=== PATIENT | female | born 1965 | race Caucasian/White ===

== ENCOUNTER → 2017-03-06 | Outpatient (CLI) | payer BC ==
--- NOTE | 2017-03-07 08:07 | MM ---
Reason for exam: screening (asymptomatic). Last mammogram was performed 5 years and 4 months ago. Physical Findings: A clinical breast exam by your physician is recommended on an annual basis and results should be correlated with mammographic findings. MG Screening Mammo w CAD Bilateral CC and MLO view(s) were taken. Prior study comparison: January 15, 2015, mammogram, performed at [facility]. October 27, 2011, bilateral digital screening mammo w/CAD. November 06, 2008, bilateral digital screening mammogram. There are scattered fibroglandular densities. No significant changes when compared with prior studies. ASSESSMENT: Negative, BI-RAD 1 RECOMMENDATION: Routine screening mammogram of both breasts in 1 year.
== END | disposition home or self-care (01) ==
LOC: RADMAMWWP 07:23
PROVIDERS: ATTEND Obstetrics & Gynecology
DX: Z12.31 Encounter for screening mammogram for malignant neoplasm of breast (principal); N95.1 Menopausal and female climacteric states

== ENCOUNTER 2017-03-17 10:43 | Day surgery (SDC) | payer BC ==
[2017-03-13 15:45] VITALS: BMI 25.1
[~2017-03-17 10:43] MED LIST: LACTATED RINGERS 1,000 ML IV SCH; LIDOCAINE 1% 20 ML VIAL (10MG/ML) FOR IV START INTRADERMA PRN
[2017-03-17 11:12] VITALS: TEMP 98.1
[2017-03-17] MEDS ORDERED: PROPOFOL 10 MG/ML 20 ML VIAL IV ONE (12:58)
[2017-03-17] MEDS ORDERED: MIDAZOLAM 2 MG/2 ML VIAL ONE (12:58)
[2017-03-17] MEDS ORDERED: fentaNYL (PF) 50 MCG/ML 2 ML AMP ONE (12:58)
[2017-03-17] MEDS ORDERED: LIDOCAINE 1% INJ 10MG/ML (20 ML MDV) ONE (12:58)
--- NOTE | 2017-03-17 13:18 | P.OP ---
Date of Procedure: 03/17/17 Preoperative Diagnosis: Screening colonoscopy Postoperative Diagnosis: Normal colon Procedure(s) Performed: Colonoscopy Implants: Anesthesia: MAC Surgeon: Gume Akins Pathology: none sent Condition: stable Disposition: PACU Indications for Procedure: Operative Findings: Description of Procedure: PROCEDURE: The patient was placed on the endoscopy table in the lateral position. Digital rectal examination was performed which revealed no abnormalities. Flexible colonoscope was then placed in the patient's anus and passed throughout the entire colon. The ileocecal valve was visualized. The cecum, ascending, transverse, descending and sigmoid colon were normal. The rectum was normal as well. There were no masses, polyps or diverticula noted in the entire colon. SUMMARY OF FINDINGS: Normal colonoscopy.
[2017-03-17 13:19] VITALS: RESP 16
--- NOTE | 2017-03-17 13:19 | P.GSHP ---
History of Present Illness H&P Date: 03/17/17 This a 52-year-old female referred from Dr. jaeger. Patient presents today for screening colonoscopy. Past Medical History Past Medical History: Blood Disorder Additional Past Medical History / Comment(s): SCREENING. FACTOR 5 BLOOD DISORDER History of Any Multi-Drug Resistant Organisms: None Reported Past Surgical History: Bariatric Surgery, Section, Cholecystectomy, Hernia Repair, Hysterectomy, Tubal Ligation Additional Past Surgical History / Comment(s): LAP BAND, PORT REPAIR THEN REMOVAL OF LAP BAND. GASTRIC SLEEVE,. KIDNEY STONES REMOVED,. HIATAL HERNIA REPAIR, Past Anesthesia/Blood Transfusion Reactions: No Reported Reaction Past Psychological History: Depression Smoking Status: Never smoker - Past Family History Mother Family Medical History: Deep Vein Thrombosis (DVT) Medications and Allergies Home Medications Medication Instructions Recorded Confirmed Type Acetaminophen Tab [Tylenol Tab] 1,000 mg PO HS 03/13/17 03/13/17 History Aspirin [Adult Low Dose Aspirin EC] 81 mg PO DAILY 03/13/17 03/13/17 History Cyanocobalamin (Vitamin B-12) 2,500 mcg PO DAILY 03/13/17 03/13/17 History [Vitamin B12] Multivitamins, Thera [Multivitamin 1 each PO DAILY 03/13/17 03/13/17 History (formulary)] buPROPion HCL [Wellbutrin XL] 300 mg PO DAILY 03/13/17 03/13/17 History Allergies Allergy/AdvReac Type Severity Reaction Status Date / Time No Known Allergies Allergy Verified 03/13/17 15:37 Surgical - Exam Vital Signs Temp Pulse Resp BP Pulse Ox 98.1 F 80 18 115/74 97 03/17/17 11:11 03/17/17 11:11 03/17/17 11:11 03/17/17 11:11 03/17/17 11:11 - General well developed, no distress - Eyes PERRL - ENT normal pinna - Neck no masses - Respiratory normal expansion - Cardiovascular Rhythm: regular - Abdomen Abdomen: soft, non tender Assessment and Plan Plan: We'll perform screening colonoscopy.
[2017-03-17 13:35] VITALS: BP 108/73; PULSE 69
== END 2017-03-17 13:56 | disposition home or self-care (01) ==
LOC: ORWHC2ENDO 10:43
PROVIDERS: ATTEND Surgery
DX: Z12.11 Encounter for screening for malignant neoplasm of colon (principal); D68.51 Activated protein C resistance; F32.9 Major depressive disorder, single episode, unspecified; Z79.82 Long term (current) use of aspirin; Z79.899 Other long term (current) drug therapy
CPT/HCPCS: J2250; J2001; J3010; J2704; G0121

== ENCOUNTER 2018-06-07 13:56 | Emergency (ER) | payer BC ==
[2018-06-07 14:05] VITALS: BP 119/77; PULSE 87; RESP 20; TEMP 98.1
[2018-06-07] MEDS ORDERED: SODIUM CHLORIDE 0.9% 500 ML IV STA (14:17)
[2018-06-07] MEDS ORDERED: SODIUM CHLORIDE 0.9% 1,000 ML IV STA (14:17)
[2018-06-07] MEDS ORDERED: KETOROLAC 30 MG/ML 1 ML VIAL IVP STA (14:17)
--- NOTE | 2018-06-07 14:20 | ED ---
General Adult HPI - General Chief complaint: Back Pain/Injury Stated complaint: kidney stones Time Seen by Provider: 06/07/18 14:06 Source: patient, RN notes reviewed Mode of arrival: ambulatory Limitations: no limitations - History of Present Illness Initial comments: 53-year-old female presents emergency Department with chief complaint of left flank pain. Patient states that she has a history kidney stones. Patient states she was recently seen in urgent care and told her that she had a stone in her bladder. Patient states pain is all her left flank. She has had surgery by Dr. vegas urology for The past. She Has Noticed Some Hematuria Denies Any Dysuria or Urinary Frequency. Patient Has Some Nausea No Vomiting No Diarrhea No Constipation. - Related Data Home Medications Medication Instructions Recorded Confirmed Aspirin [Adult Low Dose Aspirin EC] 81 mg PO DAILY 03/13/17 06/07/18 Multivitamins, Thera [Multivitamin 1 each PO DAILY 03/13/17 06/07/18 (formulary)] buPROPion HCL [Wellbutrin XL] 300 mg PO DAILY 03/13/17 06/07/18 Sleep Aid (Unknown Otc) 1 tab PO HS 06/07/18 06/07/18 Previous Rx's Medication Instructions Recorded Hydrocodone/Acetaminophen [[place] 1 tab PO Q6HR PRN #12 tab 06/07/18 5-325] Ondansetron Odt [Zofran Odt] 4 mg PO Q8HR PRN #10 tab 06/07/18 Tamsulosin [Flomax] 0.4 mg PO DAILY #7 cap 06/07/18 Allergies Allergy/AdvReac Type Severity Reaction Status Date / Time No Known Allergies Allergy Verified 06/07/18 14:12 Review of Systems ROS Statement: Those systems with pertinent positive or pertinent negative responses have been documented in the HPI. ROS Other: All systems not noted in ROS Statement are negative. Past Medical History Past Medical History: Blood Disorder Additional Past Medical History / Comment(s): SCREENING, kidney stones. FACTOR 5 BLOOD DISORDER History of Any Multi-Drug Resistant Organisms: None Reported Past Surgical History: Bariatric Surgery, Section, Cholecystectomy, Hernia Repair, Hysterectomy, Tubal Ligation Additional Past Surgical History / Comment(s): LAP BAND, PORT REPAIR THEN REMOVAL OF LAP BAND. GASTRIC SLEEVE,. KIDNEY STONES REMOVED,. HIATAL HERNIA REPAIR, Past Anesthesia/Blood Transfusion Reactions: No Reported Reaction Past Psychological History: Depression Smoking Status: Never smoker Past Alcohol Use History: Occasional Past Drug Use History: None Reported - Past Family History Mother Family Medical History: Deep Vein Thrombosis (DVT) General Exam Limitations: no limitations General appearance: alert, in no apparent distress Head exam: Present: atraumatic, normocephalic, normal inspection Neck exam: Present: normal inspection. Absent: tenderness, meningismus, lymphadenopathy Respiratory exam: Present: normal lung sounds bilaterally. Absent: respiratory distress, wheezes, rales, rhonchi, stridor Cardiovascular Exam: Present: regular rate, normal rhythm, normal heart sounds. Absent: systolic murmur, diastolic murmur, rubs, gallop, clicks GI/Abdominal exam: Present: soft, normal bowel sounds. Absent: distended, tenderness, guarding, rebound, rigid Back exam: Present: CVA tenderness (L). Absent: CVA tenderness (R) Skin exam: Present: warm, dry, intact, normal color. Absent: rash Course Vital Signs 06/07/18 14:03 Temperature 98.1 F Pulse Rate 87 Respiratory 20 Rate Blood Pressure 119/77 O2 Sat by Pulse 98 Oximetry Medical Decision Making - Medical Decision Making 53-year-old female presents emergency department for flank pain. Patient has a history kidney stones. Urinalysis reveals hematuria. Patient pain and symptoms are consistent with a kidney stone. Patient will be discharged with pain medication follow-up with Dr. Vegas who she seen in the past. - Lab Data Result diagrams: 06/07/18 15:30 06/07/18 15:03 Lab Results 06/07/18 06/07/18 06/07/18 Range/Units 15:03 15:03 15:30 WBC 10.9 H (3.8-10.6) k/uL RBC 4.57 (3.80-5.40) m/uL Hgb 13.2 (11.4-16.0) gm/dL Hct 40.2 (34.0-46.0) % MCV 88.0 (80.0-100.0) fL MCH 28.9 (25.0-35.0) pg MCHC 32.9 (31.0-37.0) g/dL RDW 12.8 (11.5-15.5) % Plt Count 257 (150-450) k/uL Neutrophils % 82 % Lymphocytes % 9 % Monocytes % 6 % Eosinophils % 1 % Basophils % 0 % Neutrophils # 8.9 H (1.3-7.7) k/uL Lymphocytes # 1.0 (1.0-4.8) k/uL Monocytes # 0.7 (0-1.0) k/uL Eosinophils # 0.1 (0-0.7) k/uL Basophils # 0.0 (0-0.2) k/uL Sodium 140 (137-145) mmol/L Potassium 4.6 (3.5-5.1) mmol/L Chloride 108 H (98-107) mmol/L Carbon Dioxide 22 (22-30) mmol/L Anion Gap 10 mmol/L BUN 14 (7-17) mg/dL Creatinine 0.87 (0.52-1.04) mg/dL Est GFR (CKD-EPI)AfAm 88 (>60 ml/min/1.73 sqM) Est GFR (CKD-EPI)NonAf 77 (>60 ml/min/1.73 sqM) Glucose 105 H (74-99) mg/dL Calcium 9.6 (8.4-10.2) mg/dL Total Bilirubin 0.8 (0.2-1.3) mg/dL AST 25 (14-36) U/L ALT 19 (9-52) U/L Alkaline Phosphatase 89 (38-126) U/L Total Protein 7.7 (6.3-8.2) g/dL Albumin 4.4 (3.5-5.0) g/dL Amylase 69 (30-110) U/L Lipase 81 (23-300) U/L Urine Color Yellow Urine Appearance Turbid H (Clear) Urine pH 8.5 H (5.0-8.0) Ur Specific D Hanis 1.021 (1.001-1.035) Urine Protein Trace H (Negative) Urine Glucose (UA) Negative (Negative) Urine Ketones Negative (Negative) Urine Blood Moderate H (Negative) Urine Nitrite Negative (Negative) Urine Bilirubin Negative (Negative) Urine Urobilinogen <2.0 (<2.0) mg/dL Ur Leukocyte Esterase Negative (Negative) Urine RBC 81 H (0-5) /hpf Ur Squamous Epith Cells 27 H (0-4) /hpf Amorphous Sediment Rare H (None) /hpf Urine Mucus Rare H (None) /hpf Disposition Clinical Impression: Kidney stone, Hematuria, Flank pain Disposition: HOME SELF-CARE Condition: Stable Instructions: Kidney Stones (ED) Additional Instructions: Please return to the Emergency Department if symptoms worsen or any other concerns. Prescriptions: Hydrocodone/Acetaminophen [[place] 5-325] 1 tab PO Q6HR PRN #12 tab PRN Reason: Pain Ondansetron Odt [Zofran Odt] 4 mg PO Q8HR PRN #10 tab PRN Reason: Nausea Tamsulosin [Flomax] 0.4 mg PO DAILY #7 cap Is patient prescribed a controlled substance at d/c from ED?: No Referrals: Mis Zavaleta MD [Primary Care Provider] - 1-2 days Time of Disposition: 16:29
[2018-06-07] MEDS ORDERED: ONDANSETRON 4 MG/2 ML VIAL IVP STA (15:23)
[2018-06-07] MEDS ORDERED: HYDROmorphone 0.5 MG/0.5 ML SYRINGE IVP STA (15:23)
--- NOTE | 2018-06-07 15:28 | XR ---
EXAMINATION TYPE: XR KUB DATE OF EXAM: 06/07/2018 COMPARISON: None INDICATION: Abdomen pain TECHNIQUE: Single view abdomen frontal projection FINDINGS: There is a nonspecific bowel gas pattern. Suspicious differential air-fluid levels are not evident. N o free air is present. No mass effect is evident. Psoas margins are normal. No organomegaly is present. Surgical clips are in the epigastric region in the right upper quadrant. Bowel surgical suture appear s to be in the left upper abdomen. IMPRESSION: 1. Nonspecific abdomen.
[2018-06-07 15:33] LABS: Albumin 4.4 g/dL (3.5-5.0); Calcium 9.6 mg/dL (8.4-10.2); Potassium 4.6 mmol/L (3.5-5.1); Total Bilirubin 0.8 mg/dL (0.2-1.3); Total Protein 7.7 g/dL (6.3-8.2)
[2018-06-07 15:42] LABS: Amorphous Sediment,Urine Rare /hpf; Appearance,Urine Turbid (Clear); Bilirubin,Urine Negative (Negative); Blood,Urine Moderate (Negative); Color,Urine Yellow; Glucose,Urine (UA) Negative (Negative); Ketones,Urine Negative (Negative); Leukocyte Esterase,Urine Negative (Negative); Mucus,Urine Rare /hpf; Nitrite,Urine Negative (Negative); PH, Urine 8.5 (5.0-8.0); Protein,Urine Trace (Negative); RBC,Urine 81 /hpf (0-5); Specific Gravity,Urine 1.021 (1.001-1.035); Squamous Epithelial Cell,Urine 27 /hpf (0-4); Urobilinogen,Urine <2.0 mg/dL (<2.0)
[2018-06-07 15:45] LABS: Basophils % (A) 0 %; Eosinophils # (A) 0.1 k/uL (0-0.7); Eosinophils % (A) 1 %; HCT 40.2 % (34.0-46.0); HGB 13.2 gm/dL (11.4-16.0); Lymphocytes % (A) 9 %; MCH 28.9 pg (25.0-35.0); MCHC 32.9 g/dL (31.0-37.0); Mean Platelet Volume 7.5; Monocytes # (A) 0.7 k/uL (0-1.0); Monocytes % (A) 6 %; Neutrophils # (A) 8.9 k/uL (1.3-7.7); Neutrophils % (A) 82 %; Platelet Count 257 k/uL (150-450); RBC 4.57 m/uL (3.80-5.40); RDW 12.8 % (11.5-15.5); WBC 10.9 k/uL (3.8-10.6)
== END 2018-06-07 17:03 | disposition home or self-care (01) ==
LOC: EC 13:56
DX: N20.0 Calculus of kidney (principal); F32.9 Major depressive disorder, single episode, unspecified; Z90.49 Acquired absence of other specified parts of digestive tract; Z98.84 Bariatric surgery status; Z98.51 Tubal ligation status; Z90.710 Acquired absence of both cervix and uterus; Z98.890 Other specified postprocedural states; Z79.899 Other long term (current) drug therapy; Z79.82 Long term (current) use of aspirin
CPT/HCPCS: 36415; 80053; 82150; 83690; 85025; 81001; 74018; 99284; 96374; 96375 ×2; 96361; J2405; J1885; J1170

== ENCOUNTER → 2020-05-28 | Outpatient (CLI) | payer BC ==
--- NOTE | 2020-05-29 10:44 | ECHOF ---
Referral Reason:G45.3 MEASUREMENTS -------- HEIGHT: 180.3 cm WEIGHT: 97.5 kg BP: IVSd: 1.0 cm (0.6 - 1.1) LVIDd: 4.8 cm (3.9 - 5.3) LVPWd: 0.9 cm (0.6 - 1.1) IVSs: 1.5 cm LVIDs: 3.3 cm LVPWs: 1.4 cm LAESV Index (A-L): 17.12 ml/m Ao Diam: 3.3 cm (2.0 - 3.7) AV Cusp: 2.3 cm (1.5 - 2.6) LA Diam: 2.5 cm (2.7 - 3.8) MV EXCURSION: 14.230 mm (> 18.000) MV EF SLOPE: 104 mm/s (70 - 150) EPSS: 0.9 cm MV E Timothy: 0.63 m/s MV DecT: 219 ms MV A Timothy: 0.61 m/s MV E/A Ratio: 1.03 RAP: 5.00 mmHg RVSP: 9.94 mmHg FINDINGS -------- This was a technically adequate study. The left ventricular size is normal. Left ventricular wall thickness is normal. Overall left vent ricular systolic function is normal with, an EF between 55 - 60 %. The diastolic filling pattern is normal for the age of the patient 7.21. The right ventricle is normal in size. The left atrial size is normal. Normal LA size by volume 22+/-6 ml/m2. The right atrial size is normal. Interatrial and interventricular septum intact. The aortic valve is trileaflet and appears structurally normal. The mitral valve is normal. There is trace mitral regurgitation. The tricuspid valve appears structurally normal. Trace tricuspid regurgitation present. Right marco tricular systolic pressure is normal at < 35 mmHg. There is no pulmonic regurgitation present. The aortic root size is normal. Normal inferior vena cava with normal inspiratory collapse consistent with estimated right atrial pre ssure of 5 mmHg. There is no pericardial effusion. CONCLUSIONS -------- 1. The left ventricular size is normal. 2. Left ventricular wall thickness is normal. 3. Overall left ventricular systolic function is normal with, an EF between 55 - 60 %. 4. The diastolic filling pattern is normal for the age of the patient 7.21 5. There is trace mitral regurgitation. 6. Trace tricuspid regurgitation present. 7. There is no pericardial effusion. MARK UP DESIGNER: Jaqueline Buck RDCS
== END | disposition home or self-care (01) ==
LOC: RADECHMAIN 15:08
PROVIDERS: ATTEND Family Medicine
DX: I08.1 Rheumatic disorders of both mitral and tricuspid valves (principal)
CPT/HCPCS: 93306

== ENCOUNTER → 2020-05-28 | Outpatient (CLI) | payer BC ==
--- NOTE | 2020-05-29 13:48 | US ---
EXAMINATION TYPE: US carotid duplex BILAT DATE OF EXAM: 05/28/2020 COMPARISON: NONE CLINICAL HISTORY: H53.9 unspecified visual disturbance. Visual disturbance. No HTN. No hx TIA or st roke. EXAM MEASUREMENTS: RIGHT: Peak Systolic Velocity (PSV) cm/sec ----- Right CCA: 66.6 ----- Right ICA: 111.0 ----- Right ECA: 82.8 ICA/CCA ratio: 1.7 RIGHT: End Diastole cm/sec ----- Right CCA: 18.3 ----- Right ICA: 36.0 ----- Right ECA: 14.4 LEFT: Peak Systolic Velocity (PSV) cm/sec ----- Left CCA: 98.6 ----- Left ICA: 102.0 ----- Left ECA: 107.0 ICA/CCA ratio: 1.0 LEFT: End Diastole cm/sec ----- Left CCA: 29.2 ----- Left ICA: 46.0 ----- Left ECA: 18.4 VERTEBRALS (direction of flow): Right Vertebral: Antegrade Left Vertebral: Antegrade Rhythm: Normal No wall thickening. No plaque. No significant stenosis. Left proximal elevated CCA velocity. IMPRESSION: 1. No significant flow-limiting stenosis Criteria for Assigning % of Stenosis / Diameter reduction (Estimation based on the indirect measurements of the internal carotid artery velocities (ICA PSV). 1. Normal (no stenosis)=ICA PSV < 125 cm/s: ratio < 2.0: ICA EDV<40 cm/s. 2. Less than 50% stenosis=ICA PSV < 125 cm/s: ratio < 2.0: ICA EDV<40 cm/s. 3. 50 to 69% stenosis=ICA PSV of 125 to 230 cm/s: ration 2.0 ? 4.0: ICA EDV 40-100 cm/s. 4. Greater than 70% stenosis to near occlusion= ICA PSV > 230 cm/s: ratio > 4.0: ICA EDV > 100 cm/s. 5. Near occlusion= ICA PSV velocities may be low or undetectable: variable ratio and ICA EDV. 6. Total occlusion=unable to detect flow.
== END | disposition home or self-care (01) ==
LOC: RADUSWWP 14:50
PROVIDERS: ATTEND Family Medicine
DX: H53.9 Unspecified visual disturbance (principal)
CPT/HCPCS: 93880

== ENCOUNTER → 2020-09-28 | Outpatient (CLI) | payer BC ==
[2020-09-28 08:05] LABS: HGB 13.9 gm/dL (11.4-16.0); MCH 28.8 pg (25.0-35.0); MCV 87.3 fL (80.0-100.0); Mean Platelet Volume 7.5; Platelet Count 229 k/uL (150-450); RBC 4.81 m/uL (3.80-5.40); RDW 12.5 % (11.5-15.5); WBC 5.3 k/uL (3.8-10.6)
--- NOTE | 2020-09-28 08:20 | US ---
EXAMINATION TYPE: US thyroid st tissue head/neck DATE OF EXAM: 09/28/2020 COMPARISON: NONE CLINICAL HISTORY: 55-year-old female R53.83 Other Fatigue. TECHNIQUE: Multiple sonographic images of the thyroid gland are obtained. FINDINGS: GLAND SIZE: Right Lobe: 5.4 x 1.4 x 1.0 cm Overall Parenchyma: Slightly heterogeneous Left Lobe: 5.0 x 1.2 x 1.4 cm Overall Parenchyma: Slightly heterogeneous Isthmus Thickness: 0.3 cm NODULES RIGHT: Tiny 3 mm lower pole cyst. LEFT: # of nodules measured on left: 0 ISTHMUS: # of nodules measured in the isthmus: 0 Bottled Beverage Inspector notes: Bilateral neck scanned, no evidence of lymphadenopathy. IMPRESSION: 1. Mild thyromegaly. 2. Tiny benign 3 mm cyst in the right lower lobe.
[2020-09-28 10:30] LABS: ALT 16 U/L (4-34); AST 24 U/L (14-36); African American GFR (CKD) >90 (>60 ml/min/1.73 sqM); Albumin 3.8 g/dL (3.5-5.0); Alkaline Phosphatase 94 U/L (38-126); Anion Gap 2 mmol/L; Blood Urea Nitrogen 17 mg/dL (7-17); Calcium 9.2 mg/dL (8.4-10.2); Carbon Dioxide 32 mmol/L (22-30); Chloride 107 mmol/L (98-107); Glucose 87 mg/dL (74-99); Non-African American GFR(CKD) >90 (>60 ml/min/1.73 sqM); Potassium 4.8 mmol/L (3.5-5.1); Sodium 141 mmol/L (137-145); Total Bilirubin 0.7 mg/dL (0.2-1.3); Total Protein 6.9 g/dL (6.3-8.2)
[2020-09-28 10:47] LABS: T4, Free (Free Thyroxine) 1.41 ng/dL (0.78-2.19)
[2020-09-28 10:58] LABS: Thyroid Peroxidase Antibodies 46.7 U/mL (0.0-60.0)
[2020-09-28 10:59] LABS: Prolactin 10.2 ng/mL (2.8-29.2)
[2020-09-28 16:32] LABS: ACTH 9.32 pg/mL (0.00-45.99)
== END | disposition home or self-care (01) ==
LOC: RADUSWWP 07:06
PROVIDERS: ATTEND Internal Medicine Endocrinology, Diabetes & Metabolism
DX: E01.0 Iodine-deficiency related diffuse (endemic) goiter (principal); R53.83 Other fatigue
CPT/HCPCS: 36415; 76536; 80053; 82024; 82533; 82607; 84146; 84439; 84443; 84445; 84481; 85027; 86376

== ENCOUNTER → 2020-10-17 | Outpatient (CLI) | payer BC ==
--- NOTE | 2020-10-17 08:50 | MR ---
EXAMINATION TYPE: MR pituitary wo/w con DATE OF EXAM: 10/17/2020 8:29 AM COMPARISON: NONE HISTORY: Fatigue, pituitary adenoma CONTRAST: Patient received 100 mL intravenous Gadavist contrast. Multiplanar MultiSpin echo imaging of the pituitary fossa was performed. Unenhanced followed by cont rast enhanced images are submitted. The unenhanced portion of the study fails to demonstrate evidence for hyperintense pituitary lesion. The pituitary gland is of normal size and measures 1.0 cm x 0.7 cm. Following contrast administrati on there is a tiny filling defect measuring 1.9 mm within the left portion of the pituitary gland as seen best on coronal image 9 of 20. Pituitary stalk is midline. Suprasellar cistern is unremarkable without evidence for mass. Optic chiasm has a normal appearance. Cavernous sinus including the king tid vessels appear to be within normal limits. IMPRESSION: 1. Suspect tiny pituitary microadenoma as discussed.
== END | disposition home or self-care (01) ==
LOC: RADMRIMAIN 07:38
PROVIDERS: ATTEND Internal Medicine Endocrinology, Diabetes & Metabolism
DX: D35.2 Benign neoplasm of pituitary gland (principal); R53.83 Other fatigue; H05.20 Unspecified exophthalmos
CPT/HCPCS: 70553; A9585

== ENCOUNTER → 2020-10-22 | Outpatient (CLI) | payer BC ==
[2020-10-23 02:46] LABS: T4, Free (Free Thyroxine) 1.2 ng/dL (0.80-1.80)
== END | disposition home or self-care (01) ==
LOC: LABWHC1 15:48
PROVIDERS: ATTEND Internal Medicine Endocrinology, Diabetes & Metabolism
DX: D35.2 Benign neoplasm of pituitary gland (principal); H05.20 Unspecified exophthalmos; R53.83 Other fatigue
CPT/HCPCS: 36415; 84439; 84443; 84481

== ENCOUNTER → 2020-11-20 | Outpatient (CLI) | payer BC ==
[2020-11-20 15:16] LABS: Prolactin 9.6 ng/mL (2.8-29.2); T4, Free (Free Thyroxine) 1.2 ng/dL (0.80-1.80)
== END | disposition home or self-care (01) ==
LOC: LABWHC1 09:31
PROVIDERS: ATTEND Internal Medicine Endocrinology, Diabetes & Metabolism
DX: D35.2 Benign neoplasm of pituitary gland (principal)
CPT/HCPCS: 36415; 84146; 84305; 84439; 84443; 84480; 84481

== ENCOUNTER → 2022-08-08 | Outpatient (CLI) | payer BC ==
[2022-08-08 14:12] VITALS: BP 127/82; PULSE 80; TEMP 97.7; BMI 33.5
--- NOTE | 2022-08-08 14:23 | P.HPBAR ---
Bariatric H&P - History & Physicial H&P Date: 08/08/22 History & Physicial: Visit/CC: sleeve F/U Patient initial contact: Initial weight: Initial weight in pounds: Height: 5 ft 9 in Initial BMI: Last weight: Current weight: 102.965 kg Current weight in pounds: 227.00 Current BMI: 33.5 [place] body weight (based on NIH guidelines): 65.771 kg Excess body weight loss: The patient is a 57 year-old F who presents for Bariatric Assessment. Patient presents today for sleeve gastrectomy follow-up. She's not been seen several years. She has some mild GERD. She's also complains of some weight gain. She currently weighs 227 pounds. Past Medical History Past Medical History: Blood Disorder Additional Past Medical History / Comment(s): SCREENING, kidney stones. FACTOR 5 BLOOD DISORDER History of Any Multi-Drug Resistant Organisms: None Reported Past Surgical History: Bariatric Surgery, Section, Cholecystectomy, Hernia Repair, Hysterectomy, Tubal Ligation Additional Past Surgical History / Comment(s): LAP BAND, PORT REPAIR THEN REMOVAL OF LAP BAND. GASTRIC SLEEVE,. KIDNEY STONES REMOVED,. HIATAL HERNIA REPAIR, Past Anesthesia/Blood Transfusion Reactions: No Reported Reaction Past Psychological History: Depression Smoking Status: Never smoker Past Alcohol Use History: Occasional Past Drug Use History: None Reported - Past Family History Mother Family Medical History: Deep Vein Thrombosis (DVT) Surgical - Exam Vital Signs Temp Pulse BP 97.7 F 80 127/82 08/08/22 14:03 08/08/22 14:03 08/08/22 14:03 - General well developed, well nourished, no distress - Eyes PERRL - ENT normal pinna - Neck no masses - Respiratory normal expansion - Cardiovascular Rhythm: regular - Abdomen Abdomen: soft, non tender Bariatric Assessment & Plan Plan: Mild GERD. Patient's had weight gain. She'll undergo esophagram and EGD to evaluate her GERD and possible weight gain. Bariatric Checklist Checklist: Plan: Checklist: EGD: 1. Hiatal hernia: 2. H. Pylori: HgbA1c: Vitamin D: Smoking: Never smoker Primary care physician referral: Dr. Zavaleta Psychiatry clearance: Cardiology clearance: Sleep study: Diet journal: VTE risk score: VTE risk level: Rehab needs at discharge:
--- NOTE | 2022-08-08 15:41 | FL ---
EXAMINATION TYPE: FL barium swallow DATE OF EXAM: 08/08/2022 CLINICAL HISTORY: History of gastric sleeve surgery 2014 after prior lap band. Epigastric pain and d ysphagia. TECHNIQUE: Limited esophagram is performed utilizing 20 oz of thin liquid barium. A total of 47 seco nds of fluoroscopic time was utilized during procedure and 122 images obtained. COMPARISON: None. FINDINGS: The patient swallowed contrast without difficulty or delay. Esophageal peristalsis and mo tility are within normal limits. There is good flow of contrast along the diaphragmatic hiatus into proximal stomach and subsequent flow into gastric sleeve. There is good flow from distal sleeve into pylorus and duodenal sweep. Patient remains asymptomatic. There is no evidence of contrast extravasat ion to suggest leak. A small to moderate-sized sliding-type hiatal hernia noted towards the end of . Cholecystectomy clips are incidentally seen. IMPRESSION: Small to moderate size sliding-type hiatal hernia.
== END ==
LOC: BARWHC3 13:52
PROVIDERS: ATTEND Surgery
DX: K21.9 Gastro-esophageal reflux disease without esophagitis (principal); E66.01 Morbid (severe) obesity due to excess calories; Z68.33 Body mass index [BMI] 33.0-33.9, adult
CPT/HCPCS: 74220; 99211

== ENCOUNTER → 2023-01-09 | Day surgery (SDC) | payer BC ==
[2023-01-02 14:37] VITALS: BMI 32.3
[~2023-01-09] MED LIST changes: +LACTATED RINGERS 1,000 ML IV ONE; -LIDOCAINE 1% 20 ML VIAL (10MG/ML) FOR IV START INTRADERMA PRN; +LIDOCAINE 2% INJ 20 MG/ML (2 ML VIAL) ONE; +PROPOFOL 10 MG/ML 20 ML VIAL IV ONE
[2023-01-09 12:52] VITALS: TEMP 98
--- NOTE | 2023-01-09 13:44 | P.GSHP ---
History of Present Illness H&P Date: 01/09/23 Chief Complaint: GERD This 57-year-old female presents today for EGD. Patient initial GERD. Past Medical History Past Medical History: Blood Disorder, Fibromyalgia, GERD/Reflux, Thyroid Disorder Additional Past Medical History / Comment(s): hx kidney stones, back pain., hashimotos, states mass behind left eye, hx tremors (takes propranolol). FACTOR 5 BLOOD DISORDER History of Any Multi-Drug Resistant Organisms: None Reported Past Surgical History: Bariatric Surgery, Section, Cholecystectomy, Hernia Repair, Hysterectomy, Tubal Ligation Additional Past Surgical History / Comment(s): LAP BAND - PORT REPLACED THEN REMOVAL OF LAP BAND. GASTRIC SLEEVE. KIDNEY STONES REMOVED. HIATAL HERNIA REPAIR Past Anesthesia/Blood Transfusion Reactions: No Reported Reaction Past Psychological History: Depression Smoking Status: Never smoker Past Alcohol Use History: Occasional Past Drug Use History: None Reported - Past Family History Mother Family Medical History: Deep Vein Thrombosis (DVT) Father Family Medical History: Deep Vein Thrombosis (DVT) Son(s) Family Medical History: Pulmonary Embolus Medications and Allergies Home Medications Medication Instructions Recorded Confirmed Type Multivitamins, Thera [Multivitamin 1 each PO DAILY 03/13/17 01/09/23 History (formulary)] Cyanocobalamin (Vitamin B-12) 1,000 mcg PO DAILY 08/08/22 01/09/23 History [Vitamin B-12] Cyclobenzaprine [Flexeril] 10 mg PO DAILY 08/08/22 01/09/23 History Ibuprofen [Motrin] 600 mg PO BID 08/08/22 01/09/23 History Mirtazapine 30 mg PO HS 08/08/22 01/09/23 History Omeprazole 20 mg PO DAILY 08/08/22 01/09/23 History Propranolol HCl [Inderal] 60 mg PO DAILY 08/08/22 01/09/23 History buPROPion XL [Wellbutrin XL] 150 mg PO DAILY 01/02/23 01/09/23 History Allergies Allergy/AdvReac Type Severity Reaction Status Date / Time nickel Allergy Unknown rash/itchin Verified 01/09/23 12:47 g Surgical - Exam Vital Signs Temp Pulse Resp BP Pulse Ox 98 F 82 16 153/88 98 01/09/23 12:51 01/09/23 12:51 01/09/23 12:51 01/09/23 12:51 01/09/23 12:51 - General well developed, no distress - Eyes PERRL - ENT normal pinna - Neck no masses - Respiratory normal expansion - Cardiovascular Rhythm: regular - Abdomen Abdomen: soft, non tender Assessment and Plan Assessment: GERD. We'll perform EGD.
--- NOTE | 2023-01-09 13:46 | P.OP ---
Date of Procedure: 01/09/23 Preoperative Diagnosis: GERD Postoperative Diagnosis: Hiatal hernia Procedure(s) Performed: EGD Anesthesia: MAC Surgeon: Gume Akins Pathology: other (Esophagus) Condition: stable Disposition: PACU Description of Procedure: The patient's placed on the endoscopy table in the lateral position. She rece ived IV sedation. The gastroscope placed in the oral pharynx and placed into the esophagus into the stomach. Scope was placed through the pylorus. The first and second portion of the duodenum appeared normal. Scope was then brought back the antrum. This appeared normal. Scope was then brought back and had a moderately dilated gastric sleeve. There is evidence of a moderate size hiatal hernia. The GE junction was at 38 7 is. The distal esophagus appeared inflamed. A biopsies performed. The proximal esophagus appeared normal. Scope withdrawn for patient.
[2023-01-09 14:11] VITALS: BP 126/80; PULSE 72; RESP 18
== END ==
LOC: ORWHC2ENDO 12:12
PROVIDERS: ATTEND Surgery
DX: K21.00 Gastro-esophageal reflux disease with esophagitis, without bleeding (principal); K44.9 Diaphragmatic hernia without obstruction or gangrene; M79.7 Fibromyalgia; F32.A Depression, unspecified; E07.9 Disorder of thyroid, unspecified; Z98.891 History of uterine scar from previous surgery; Z90.49 Acquired absence of other specified parts of digestive tract; Z90.710 Acquired absence of both cervix and uterus; Z98.51 Tubal ligation status; Z86.59 Personal history of other mental and behavioral disorders; Z79.1 Long term (current) use of non-steroidal anti-inflammatories (NSAID); Z79.899 Other long term (current) drug therapy
CPT/HCPCS: 88305; 43239; J2704; J2001

== ENCOUNTER → 2023-01-16 | Outpatient (CLI) | payer BC ==
[2023-01-16 14:53] VITALS: BP 123/79; PULSE 80; TEMP 97.8; BMI 34.5
--- NOTE | 2023-02-14 11:17 | P.HPBAR ---
Bariatric H&P - History & Physicial H&P Date: 01/16/23 History & Physicial: Visit/CC: EGD F/U Patient initial contact: Initial weight: Initial weight in pounds: Height: 5 ft 9 in Initial BMI: Last weight: Current weight: 106.141 kg Current weight in pounds: 234.00 Current BMI: 34.5 [place] body weight (based on NIH guidelines): 65.771 kg Excess body weight loss: The patient is a 58 year-old F who presents for Bariatric Assessment. Patient resents today for bariatric follow-up. Patient underwent recent EGD. Patient has had a weight gain since last visit. She currently weighs 234 pounds. Her EGD shows a dilated gastric sleeve. There was no significant hiatal hernia. She's had some mild GERD symptoms. Past Medical History Past Medical History: Blood Disorder, Fibromyalgia, GERD/Reflux, Thyroid Disorder Additional Past Medical History / Comment(s): hx kidney stones, back pain., hashimotos, states mass behind left eye, hx tremors (takes propranolol). FACTOR 5 BLOOD DISORDER History of Any Multi-Drug Resistant Organisms: None Reported Past Surgical History: Bariatric Surgery, Section, Cholecystectomy, Hernia Repair, Hysterectomy, Tubal Ligation Additional Past Surgical History / Comment(s): LAP BAND - PORT REPLACED THEN REMOVAL OF LAP BAND. GASTRIC SLEEVE. KIDNEY STONES REMOVED. HIATAL HERNIA REPAIR Past Anesthesia/Blood Transfusion Reactions: No Reported Reaction Past Psychological History: Depression Smoking Status: Never smoker Past Alcohol Use History: Occasional Past Drug Use History: None Reported - Past Family History Mother Family Medical History: Deep Vein Thrombosis (DVT) Father Family Medical History: Deep Vein Thrombosis (DVT) Son(s) Family Medical History: Pulmonary Embolus Surgical - Exam Vital Signs Temp Pulse BP 97.8 F 80 123/79 01/16/23 14:47 01/16/23 14:47 01/16/23 14:47 - General well developed, well nourished, no distress - Eyes PERRL - ENT normal pinna - Neck no masses - Respiratory normal expansion - Cardiovascular Rhythm: regular - Abdomen Abdomen: soft, non tender Bariatric Assessment & Plan Plan: Patient's GERD is minimal will be observed. I discussed the patient that with regards to her weight gain cannot really adjustment gastric sleeve. The patient is not interested in pursuing gastric bypass at this point. She will follow-up in 3 months. Bariatric Checklist Checklist: Plan: Checklist: EGD: 1. Hiatal hernia: 2. H. Pylori: HgbA1c: Vitamin D: Smoking: Never smoker Primary care physician referral: Dr. Zavaleta Psychiatry clearance: Cardiology clearance: Sleep study: Diet journal: VTE risk score: VTE risk level: Rehab needs at discharge:
== END ==
LOC: BARWHC3 13:22
PROVIDERS: ATTEND Surgery
DX: E66.01 Morbid (severe) obesity due to excess calories (principal); Z68.34 Body mass index [BMI] 34.0-34.9, adult; K21.9 Gastro-esophageal reflux disease without esophagitis; M79.7 Fibromyalgia; Z91.048 Other nonmedicinal substance allergy status
CPT/HCPCS: 99211

== ENCOUNTER → 2023-07-04 | Outpatient (CLI) | payer BC ==
[2023-07-04 16:11] LABS: T4, Free (Free Thyroxine) 1.38 ng/dL (0.80-1.80)
== END | disposition home or self-care (01) ==
LOC: LABWHC1 08:01
PROVIDERS: ATTEND Ophthalmology
DX: E05.00 Thyrotoxicosis with diffuse goiter without thyrotoxic crisis or storm (principal); H05.20 Unspecified exophthalmos
CPT/HCPCS: 36415; 84439; 84481

== ENCOUNTER → 2024-07-31 | Outpatient (CLI) | payer BC ==
--- NOTE | 2024-07-31 22:07 | MR ---
INDICATION: Patient age:Female; 59 years old; Reason for study: H90.3 SENSORINEURAL HEARING LOSS BILAT; PHH. COMPARISON: MR Pituitary 10/17/2020 TECHNIQUE: Multi planar, multi sequence imaging was performed through the brain. Specialized thin s equences were obtained through the internal auditory canals. Pre-and post gadolinium sequences were obtained as well after administration of 7.5 cc of Gadavist. FINDINGS: The coleman-white junctions, ventricular system, basal cisterns appear unremarkable. Diffusi on-weighted imaging shows no evidence of restricted diffusion. Few patchy areas of high T2 signal in tensity are seen within the periventricular an subcortical white matter. Mild bilateral anterior ethm oid sinus mucosal thickening. After administration of gadolinium, no abnormal enhancement is seen. In cidental arachnoid granulation within the left transverse sinus. The internal auditory canal sequences demonstrate bilateral AICA vascular loops with the right repres enting a type I loop and the left a type II. The 7th cranial nerves and 8 cranial nerves appear unre markable. No suspicious mass within the cerebellopontine angles. After the administration gadolinium, no abnormal enhancement is seen within the internal auditory canals. IMPRESSION: 1. No evidence of intracranial mass nor acute/subacute CVA. No abnormal contrast enhancement. 2. No cerebral pontine angle mass identified. No abnormal contrast enhancement within the bilateral internal auditory canals. 3. Bilateral AICA vascular loops (type I on the right and type II on the left). 4. Few nonspecific patchy T2/FLAIR signal hyperintense foci within the white matter likely related to chronic small vessel ischemic disease. [facility], , 07/31/2024 10:05 PM
== END | disposition home or self-care (01) ==
LOC: RADMRIMAIN 21:00
PROVIDERS: ATTEND Otolaryngology
DX: H90.3 Sensorineural hearing loss, bilateral (principal)
CPT/HCPCS: 70553; A9585

== ENCOUNTER → 2024-09-30 | Outpatient (CLI) | payer BC ==
[2024-09-30 09:54] VITALS: BP 113/70; PULSE 81; RESP 16; TEMP 97.7; BMI 25.4
[2024-09-30 14:47] LABS: HCT 42.6 % (37.2-46.3); HGB 13.1 g/dL (12.0-15.0); MCH 28.9 pg (27.0-32.0); MCHC 30.8 g/dL (32.0-37.0); Mean Platelet Volume 11.1 FL (9.5-12.2); NRBC Per 100 WBC 0 X 10*3/uL (0.00-0.01); Platelet Count 275 X 10*3/uL (140-440); RBC 4.53 X 10*6/uL (4.10-5.20); RDW 12.3 % (11.5-14.5); WBC 5.72 X 10*3/uL (4.50-10.00)
[2024-09-30 15:19] LABS: % Iron Saturation 23.94 (12.00-45.00); ALT 15 U/L (8-44); AST 18 U/L (13-35); Albumin 4.4 g/dL (3.8-4.9); Albumin/Globulin Ratio 1.69 Ratio (1.60-3.17); Alkaline Phosphatase 116 U/L (41-126); BUN/Creat Ratio 17.55 Ratio (12.00-20.00); Blood Urea Nitrogen 19.3 mg/dL (9.0-27.0); Calcium 9.5 mg/dL (8.7-10.3); Carbon Dioxide 24.6 mmol/L (21.6-31.8); Chloride 106 mmol/L (96-109); Ferritin 91.8 ng/mL (10.0-291.0); Globulin 2.6 g/dL (1.6-3.3); Glucose 90 mg/dL (70-110); Iron 102 UG/DL (50-170); Magnesium 1.9 mg/dL (1.5-2.4); Potassium 4.7 mmol/L (3.5-5.5); Sodium 143 mmol/L (135-145); Total Bilirubin 0.5 mg/dL (0.3-1.2); Total Iron Binding Capacity 426 UG/DL (228-460)
--- NOTE | 2024-09-30 17:04 | P.HPBAR ---
Bariatric H&P - History & Physicial H&P Date: 09/30/24 History & Physicial: Visit/CC: f/u Patient initial contact: Initial weight: Initial weight in pounds: Height: 5 ft 9 in Initial BMI: Last weight: Current weight: 78.018 kg Current weight in pounds: 172.00 Current BMI: 25.4 [place] body weight (based on NIH guidelines): 65.771 kg Excess body weight loss: The patient is a 59 year-old F who presents for Bariatric Assessment. Patient presents today for bariatric follow-up. She has not been seen many years. Patient complains of gerd. She has complaints of a left lower extremity lipoma and also complains of diarrhea. Patient had minimal gerd. Past Medical History Past Medical History: Blood Disorder, Fibromyalgia, GERD/Reflux, Thyroid Disorder Additional Past Medical History / Comment(s): hx kidney stones, back pain., hashimotos, states mass behind left eye, hx tremors (takes propranolol). FACTOR 5 BLOOD DISORDER History of Any Multi-Drug Resistant Organisms: None Reported Past Surgical History: Bariatric Surgery, Section, Cholecystectomy, Hernia Repair, Hysterectomy, Tubal Ligation Additional Past Surgical History / Comment(s): LAP BAND - PORT REPLACED THEN REMOVAL OF LAP BAND. GASTRIC SLEEVE. KIDNEY STONES REMOVED. HIATAL HERNIA REPAIR Past Anesthesia/Blood Transfusion Reactions: No Reported Reaction Past Psychological History: Depression Smoking Status: Never smoker Past Alcohol Use History: Occasional Past Drug Use History: None Reported - Past Family History Mother Family Medical History: Deep Vein Thrombosis (DVT) Father Family Medical History: Deep Vein Thrombosis (DVT) Son(s) Family Medical History: Pulmonary Embolus Surgical - Exam Vital Signs Temp Pulse Resp BP 97.7 F 81 16 113/70 09/30/24 09:41 09/30/24 09:41 09/30/24 09:41 09/30/24 09:41 - General well developed, well nourished, no distress - Eyes PERRL - ENT normal pinna - Neck no masses - Respiratory normal expansion - Cardiovascular Rhythm: regular - Abdomen Abdomen: soft, non tender - Integumentary 5 cm lower left extremity lipoma mid thigh Results - Labs 09/30/24 10:53 09/30/24 10:53 Abnormal Lab Results - Last 24 Hours (Table) 09/30/24 09/30/2425 Range/Units 10:53 10:53 10:53 MCHC 30.8 L (32.0-37.0) g/dL Anion Gap 12.40 H (4.00-12.00) mmol/L Est GFR (CKD-EPI) 58 L (>=60) Folate 31.20 H (4.40-31.00) ng/mL Diabetes panel 09/30/24 Range/Units 10:53 Sodium 143 (135-145) mmol/L Potassium 4.7 (3.5-5.5) mmol/L Chloride 106 (96-109) mmol/L Carbon Dioxide 24.6 (21.6-31.8) mmol/L BUN 19.3 (9.0-27.0) mg/dL Creatinine 1.1 (0.6-1.5) mg/dL Glucose 90 (70-110) mg/dL Calcium 9.5 (8.7-10.3) mg/dL AST 18 (13-35) U/L ALT 15 (8-44) U/L Alkaline Phosphatase 116 (41-126) U/L Total Protein 7.0 (6.2-8.2) g/dL Albumin 4.4 (3.8-4.9) g/dL Thyroid panel 09/30/24 Range/Units 10:53 TSH 2.310 (0.350-5.500) UIU/ML Calcium panel 09/30/24 Range/Units 10:53 Calcium 9.5 (8.7-10.3) mg/dL Albumin 4.4 (3.8-4.9) g/dL Pituitary panel 09/30/24 Range/Units 10:53 Sodium 143 (135-145) mmol/L Potassium 4.7 (3.5-5.5) mmol/L Chloride 106 (96-109) mmol/L Carbon Dioxide 24.6 (21.6-31.8) mmol/L BUN 19.3 (9.0-27.0) mg/dL Creatinine 1.1 (0.6-1.5) mg/dL Glucose 90 (70-110) mg/dL Calcium 9.5 (8.7-10.3) mg/dL TSH 2.310 (0.350-5.500) UIU/ML Adrenal panel 01/20/25 Range/Units 10:53 Sodium 143 (135-145) mmol/L Potassium 4.7 (3.5-5.5) mmol/L Chloride 106 (96-109) mmol/L Carbon Dioxide 24.6 (21.6-31.8) mmol/L BUN 19.3 (9.0-27.0) mg/dL Creatinine 1.1 (0.6-1.5) mg/dL Glucose 90 (70-110) mg/dL Calcium 9.5 (8.7-10.3) mg/dL Total Bilirubin 0.5 (0.3-1.2) mg/dL AST 18 (13-35) U/L ALT 15 (8-44) U/L Alkaline Phosphatase 116 (41-126) U/L Total Protein 7.0 (6.2-8.2) g/dL Albumin 4.4 (3.8-4.9) g/dL Bariatric Assessment & Plan Plan: Status post sleeve yesterday. Patient is gerd is minimal be observed. Her obesity has resolved. Her BMI is 25. Patient be scheduled for excision of left lower leg lipoma. Bariatric Checklist Checklist: Plan: Checklist: EGD: 1. Hiatal hernia: 2. H. Pylori: HgbA1c: Vitamin D: Smoking: Never smoker Primary care physician referral: Dr. Zavaleta Psychiatry clearance: Cardiology clearance: Sleep study: Diet journal: VTE risk score: VTE risk level: Rehab needs at discharge:
[2024-10-01 13:47] LABS: Zinc, Serum 87 ug/dL (60-130)
[2024-10-02 06:33] LABS: Vitamin A 78 ug/dL (38-106)
[2024-10-02 06:58] LABS: Vit B1(Thiamine) 84 ug/L (38-122)
== END ==
LOC: BARWHC3 09:25
PROVIDERS: ATTEND Surgery
DX: Z98.84 Bariatric surgery status (principal); K21.9 Gastro-esophageal reflux disease without esophagitis; Z88.8 Allergy status to other drugs, medicaments and biological substances
CPT/HCPCS: 80053; 82306; 82607; 82728; 82746; 83540; 83550; 83735; 84255; 84425; 84443; 84590; 84630; 85027; 93005; 99211

== ENCOUNTER 2024-10-31 06:44 | Day surgery (SDC) | payer BC ==
[2024-10-29 12:29] VITALS: BMI 24.3
[2024-10-31] MEDS ORDERED: LIDOCAINE 1% (10MG/ML) FOR IV START INTRADERMA PRN (07:15)
[2024-10-31 07:20] VITALS: TEMP 98.1
[2024-10-31] MEDS: LACTATED RINGERS 1,000 ML IV SCH (07:29)
[2024-10-31] MEDS: IV FLUID CONTINUATION 1,000 ML IV ONE ×2 (07:29→07:35)
[2024-10-31] MEDS ORDERED: PROPOFOL 10 MG/ML 20 ML VIAL IV ONE (07:37)
[2024-10-31] MEDS ORDERED: LIDOCAINE 1% INJ 10MG/ML (20 ML MDV) ONE (07:37)
--- NOTE | 2024-10-31 07:49 | P.GSHP ---
History of Present Illness H&P Date: 10/31/24 Chief Complaint: Gerd, diarrhea This a 59-year-old female who presents today for EGD and colonoscopy patient issues gerd and diarrhea. Past Medical History Past Medical History: Blood Disorder, Fibromyalgia, GERD/Reflux, Thyroid Disord er Additional Past Medical History / Comment(s): hx kidney stones, back pain., hashimotos, states mass behind left eye, hx tremors (takes propranolol). FACTOR 5 BLOOD DISORDER; hypoglycemic History of Any Multi-Drug Resistant Organisms: None Reported Past Surgical History: Bariatric Surgery, Section, Cholecystectomy, Hernia Repair, Hysterectomy, Tubal Ligation Additional Past Surgical History / Comment(s): LAP BAND - PORT REPLACED THEN REMOVAL OF LAP BAND. GASTRIC SLEEVE. KIDNEY STONES REMOVED. HIATAL HERNIA REPAIR Past Anesthesia/Blood Transfusion Reactions: No Reported Reaction Smoking Status: Never smoker - Past Family History Mother Family Medical History: Deep Vein Thrombosis (DVT) Father Family Medical History: Deep Vein Thrombosis (DVT) Son(s) Family Medical History: Deep Vein Thrombosis (DVT), Pulmonary Embolus Medications and Allergies Home Medications Medication Instructions Recorded Confirmed Type Multivitamins, Thera [Multivitamin 1 each PO DAILY 03/13/17 10/31/24 History (formulary)] Ibuprofen [Motrin] 600 mg PO DAILY 08/08/22 10/31/24 History buPROPion XL [Wellbutrin XL] 150 mg PO QAM 01/02/23 10/31/24 History Black Cohosh 540 mg PO DAILY 01/16/23 10/31/24 History Propranolol [Inderal] 20 mg PO QAM 10/08/24 10/31/24 History Allergies Allergy/AdvReac Type Severity Reaction Status Date / Time nickel Allergy Unknown rash/itchin Verified 10/31/24 07:13 g Surgical - Exam Vital Signs Temp Pulse Resp BP Pulse Ox 98.1 F 69 16 123/69 98 10/31/24 07:18 10/31/24 07:18 10/31/24 07:18 10/31/24 07:18 10/31/24 07:18 - General well developed, well nourished, no distress - Eyes PERRL - ENT normal pinna - Neck no masses - Respiratory normal expansion - Cardiovascular Rhythm: regular - Abdomen Abdomen: soft, non tender Assessment and Plan Plan: Gerd, diarrhea. Perform EGD and colonoscopy.
--- NOTE | 2024-10-31 08:01 | P.OP ---
Date of Procedure: 10/31/24 Preoperative Diagnosis: Gerd Diarrhea Postoperative Diagnosis: Antral gastritis Normal colon Procedure(s) Performed: EGD Colonoscopy Anesthesia: DELLA Surgeon: Gume Akins Pathology: other (From) Condition: stable Disposition: PACU Description of Procedure: The patient was placed on the endoscopy table in the lateral position. She received IV sedation. The Gastroflux oropharynx passed in the esophagus and the stomach. Scope was then placed through the pylorus. The first portion of duodenum appeared normal. Scope was brought back to the antrum this appeared mildly Flaim. A biopsy was performed. Scope was brought back to the stomach. Patient appears gastric sleeve. The GE junction was at 40 cm from the distal esophagus but normal. The proximal esophagus appeared normal. Scope withdrawn for patient. Next, digital rectal exam was performed. This revealed no abnormalities. The flexible colonoscope was then placed patient anus and passed throughout the entire colon. The ileocecal valve was visualized. The cecum, ascending and transverse colon appeared normal. The descending and sigmoid colon appeared normal. The scope was then brought back to the rectum this appeared normal. Scope withdrawn for patient.
[2024-10-31 08:24] VITALS: BP 132/83; PULSE 80; RESP 16
== END 2024-10-31 09:10 | disposition home or self-care (01) ==
LOC: ORWHC2ENDO 06:44
PROVIDERS: ATTEND Surgery
DX: K29.50 Unspecified chronic gastritis without bleeding (principal); K21.00 Gastro-esophageal reflux disease with esophagitis, without bleeding; K21.9 Gastro-esophageal reflux disease without esophagitis; Z79.1 Long term (current) use of non-steroidal anti-inflammatories (NSAID)
CPT/HCPCS: 88305; 45378; 43239; J2003; J2704